=== PATIENT | female | born 1935 | race Caucasian/White ===

== ENCOUNTER → 2018-07-08 | Outpatient (CLI) | payer MEDICARE ==
[~2018-07-08] MED LIST: ALIGN PO; ALIGN PROBIOTIC PO; ANTACID ULTRA1000 M1 PO; ANUSOL HC-11% RC; ASACOL HD800 MG PO; ASPIRIN 81M81 MG/TA2 PO; AZO-STANDARD95 MG PO; B-12500 MCG PO; BALSALAZIDE DI750 MG PO; BENADRYL25 M2; BENADRYL25 M2 PO; BENTYL 10MG10 MG/CAP PO; CALTRATE-600 W600 MG PO; CANASA 1000MG1000 MG RC; CARDI-OMEGA1000 MG PO; CARDIZEM CD 24240 MG; COLACE 100100 MG/CAP; COLESTID 1GM1 G PO; CREON 120000 U-1 ECC; CREON 60000 U-11 ECC PO; CYMBALTA 30MG30 MG PO; D3PLUS1 CAP PO; EFFEXOR 75M75 MG/TAB PO; ELITE MAGNESIUM1 TAB; ESTRACE0.1 MG/GM VG; FERRATE325 MG; FISH OIL REGUL300 MG; FLAGYL500 MG PO; FLORAGEN PO; FLORAJEN A20 Billion PO; FOLIC ACID 11 MG/TA1; FOLIC ACID0.4 MG PO; HCTZ 25MG25 MG PO; HCTZ12.5TAB; HYDROCORTISON28.4 GM TP; IMODIUM 2MG CAPS2 MG; IMODIUM 2MG CAPS2 MG PO; IRON325 M1 PO; LEVAQUIN 5500 MG/TA1 PO; LISINOPRIL20 MG PO; LOTRONEX1 MG; MACROBID 1100 MG/CAP PO; MAGNESIUM250 M1 PO; METAMUCIL3.4 GM/DOS PO; METHIMAZOLE5 MG; METHIMAZOLE5 MG PO; MUCINEX 60600 MG/TA1 PO; NORCO 325 MG-51 TAB PO; POTASSIUM GLUC550 MG PO; PREVACID 30MG30 MG PO; PRILOSEC 20MG20 MG PO; PRILOSEC10 MG; PRINZIDE 12.5 M1 TAB PO; RESTASIS 60VL IU; RESTASIS0.05% OP; SYSTANE 0.4%-0.1 SOL OP; SYSTANE GEL EYE10 ML OP; SYSTANE IU; TESSALON P100 MG/CAP; TYLENOL 500MG500 MG PO; TYLENOL ARTHRI650 M1; VALIUM 5MG T5 MG/TAB PO; VANCOCIN H125 MG/CAP PO; VINPOCETINE PO; VITAMIN C500 MG PO; VITAMIN D31000 IU; ZESTRIL 10MG10 MG; ZOFRAN 4MG T4 MG/TAB PO; [UNRECOGNIZED DRUG - OTHER] PO
== END ==
LOC: COL.RAD 10:25
DX: I67.82 Cerebral ischemia (principal)

== ENCOUNTER 2019-04-24 04:24 | Emergency (ER) | payer MEDICARE ==
[~2019-04-24] VITALS: Ht 157.5 cm; Wt 45.5 kg
[2019-04-24 04:45] VITALS: BP 208/105; TEMP 97.4
[2019-04-24 05:04] LABS: COLLECTION METHOD CATHETER
[2019-04-24 05:12] LABS: PH 8 (5-8); SQUAMOUS EPITHELIAL None Seen /hpf; URINE APPEARANCE Hazy; URINE BACTERIA Rare /hpf; URINE BILIRUBIN Negative (NEGATIVE); URINE BLOOD 2+ (NEGATIVE); URINE COLOR Straw; URINE GLUCOSE Negative (NEGATIVE); URINE KETONE Negative (NEGATIVE); URINE LEUKOCYTE ESTERASE 2+ (NEGATIVE); URINE NITRATE Negative (NEGATIVE); URINE PROTEIN(semi-quant) Negative (NEGATIVE); URINE RBC >50 /hpf; URINE UROBILINOGEN Negative (NEGATIVE)
[2019-04-24] MEDS ORDERED: DIOVAN320 MG PO (05:27)
[2019-04-24] MEDS ORDERED: TYLENOL 500MG500 MG PO (05:31)
[2019-04-24 05:32] LABS: BASO # 0.1 (0.0-0.2); BASO % 0.9 % (0.0-2.0); EOS # 0.2 (0.0-0.7); EOS % 2.3 % (0-4.0); GRAN # 4.2 (1.4-6.5); GRAN % 60.7 % (42.2-75.2); HEMOGLOBIN 11.4 g/dl (12.5-16.0); LYMPH # 2.1 (1.2-3.4); LYMPH % 29.7 % (20.0-51.0); MEAN CELL VOLUME 107 fl (80.0-100.0); MEAN CORPUSCULAR HEMOGLOBIN 36 pg (27.0-31.0); MEAN CORPUSCULAR HGB CONC 34 g/dl (33.0-37.0); MEAN PLATELET VOLUME 8.5 fl (7.4-10.4); MONO # 0.4 (0.1-0.6); MONO % 6.1 % (1.7-9.3); PLATELET COUNT 280 K/mm3 (130-400); RED BLOOD COUNT 3.16 M/mm3 (4.10-5.30)
[2019-04-24 05:34] LABS: HEMATOCRIT 33.7 % (37.0-47.0)
[2019-04-24 05:44] LABS: ALBUMIN 3.9 gm/dL (3.5-5.0); BILIRUBIN,TOTAL 0.3 mg/dL (0.0-1.0); CALCIUM 9.7 mg/dL (8.4-10.2); CREATININE, serum 0.32 (0.52-1.25); POTASSIUM 4.2 mmol/L (3.4-5.0); TOTAL PROTEIN 6.9 gm/dL (6.4-8.2)
[2019-04-24] MEDS ORDERED: CEPHALEXIN500 M1 PO (07:35)
[2019-04-24 08:34] LABS: INR 0.9 (0.8-3.0); PROTHROMBIN TIME 9.9 SECONDS (9.7-12.8)
[2019-04-24 08:40] VITALS: PULSE 76
== END 2019-04-24 08:40 | disposition home or self-care (01) ==
LOC: COL.ER 04:24
PROVIDERS: Emergency Medicine
DX: N39.0 Urinary tract infection, site not specified (principal); R10.9 Unspecified abdominal pain; G89.29 Other chronic pain; I10 Essential (primary) hypertension; E78.5 Hyperlipidemia, unspecified; K86.1 Other chronic pancreatitis; K86.81 Exocrine pancreatic insufficiency; Z90.49 Acquired absence of other specified parts of digestive tract; Z90.710 Acquired absence of both cervix and uterus
CPT/HCPCS: A4216; J0696; J3010

== ENCOUNTER 2019-05-21 16:07 | Emergency (ER) | payer MEDICARE ==
[~2019-05-21] VITALS: Ht 157.5 cm; Wt 62.3 kg
[2019-05-21 16:23] VITALS: TEMP 98.1
[2019-05-21 16:50] LABS: COLLECTION METHOD CLEAN CATCH
[2019-05-21 16:57] LABS: PH 6 (5-8); SQUAMOUS EPITHELIAL 0-2 /hpf; URINE APPEARANCE Clear; URINE BACTERIA None Seen /hpf; URINE BILIRUBIN Negative (NEGATIVE); URINE BLOOD Negative (NEGATIVE); URINE COLOR Straw; URINE GLUCOSE Negative (NEGATIVE); URINE KETONE Negative (NEGATIVE); URINE LEUKOCYTE ESTERASE Negative (NEGATIVE); URINE NITRATE Negative (NEGATIVE); URINE PROTEIN(semi-quant) Negative (NEGATIVE); URINE RBC 0-2 /hpf; URINE UROBILINOGEN Negative (NEGATIVE)
[2019-05-21 17:13] LABS: HEMOGLOBIN 10.1 g/dl (12.5-16.0); MEAN CELL VOLUME 106 fl (80.0-100.0); MEAN CORPUSCULAR HEMOGLOBIN 35 pg (27.0-31.0); MEAN CORPUSCULAR HGB CONC 33 g/dl (33.0-37.0); MEAN PLATELET VOLUME 9.3 fl (7.4-10.4); PLATELET COUNT 292 K/mm3 (130-400); RED BLOOD COUNT 2.89 M/mm3 (4.10-5.30); REDCELL DISTRIBUTION WIDTH-CV 11.7 % (11.5-14.5)
[2019-05-21 17:28] LABS: ALANINE AMINOTRANSFERASE 18 U/L (9-52); ALBUMIN 3.8 gm/dL (3.5-5.0); ALKALINE PHOSPHATASE 51 U/L (50-136); ANION GAP 9 mmol/L (7-16); AST,SGOT 20 U/L (15-37); BILIRUBIN,TOTAL 0.5 mg/dL (0.0-1.0); BLOOD UREA NITROGEN 15 mg/dL (7-17); C-REACTIVE PROTEIN 0.8 mg/dL (0.0-0.9); CALCIUM 9.1 mg/dL (8.4-10.2); CARBON DIOXIDE 23 mmol/L (22-30); CHLORIDE 101 mmol/L (98-107); CREATININE, serum 0.68 (0.52-1.25); GLUCOSE 59 mg/dL (74-106); LIPASE 156 U/L (23-300); POTASSIUM 3.8 mmol/L (3.4-5.0); SODIUM 133 mmol/L (137-145); TOTAL PROTEIN 6.8 gm/dL (6.4-8.2)
[2019-05-21 17:36] LABS: TROPONIN-I < 0.012 ng/mL (0.000-0.035)
[2019-05-21 17:37] LABS: HEMATOCRIT 30.6 % (37.0-47.0)
[2019-05-21 17:47] LABS: EOSINOPHIL 1 % (0-4); LYMPHOCYTE 27 % (20.0-51.0); NEUTROPHILS 62 % (42.0-75.2); PLATELET ESTIMATE NORMAL (NORMAL)
[2019-05-21 17:48] LABS: ANISOCYTOSIS 1+; OVALOCYTES 1+
[2019-05-21 19:30] VITALS: BP 150/69; PULSE 88
== END 2019-05-21 19:30 | disposition home or self-care (01) ==
LOC: COL.ER 16:07
PROVIDERS: Emergency Medicine
DX: R19.7 Diarrhea, unspecified (principal); R10.32 Left lower quadrant pain; R10.12 Left upper quadrant pain; I10 Essential (primary) hypertension
CPT/HCPCS: J1200; J2405; J7030; Q9967

== ENCOUNTER → 2019-05-21 | Outpatient (CLI) | payer MEDICARE ==
[~2019-05-21] MED LIST changes: +CEPHALEXIN500 M1 PO; +DIOVAN320 MG PO
== END ==
LOC: COL.LAB 11:15
DX: A04.71 Enterocolitis due to Clostridium difficile, recurrent (principal); A09 Infectious gastroenteritis and colitis, unspecified

== ENCOUNTER 2020-02-05 04:03 | Emergency (ER) | payer MEDICARE ==
[~2020-02-05] VITALS: Ht 157.5 cm; Wt 47.3 kg
[2020-02-05 04:07] VITALS: TEMP 97.9
[2020-02-05 04:21] LABS: COLLECTION METHOD CLEAN CATCH
[2020-02-05 04:31] LABS: PH 7 (5-8); SQUAMOUS EPITHELIAL 0-2 /hpf; URINE APPEARANCE Cloudy; URINE BACTERIA None Seen /hpf; URINE BILIRUBIN Negative (NEGATIVE); URINE BLOOD 2+ (NEGATIVE); URINE COLOR Amber; URINE GLUCOSE Negative (NEGATIVE); URINE KETONE Negative (NEGATIVE); URINE LEUKOCYTE ESTERASE 3+ (NEGATIVE); URINE NITRATE Positive (NEGATIVE); URINE PROTEIN(semi-quant) 1+ (NEGATIVE); URINE RBC >50 /hpf
[2020-02-05 04:34] LABS: BASO # 0.1 (0.0-0.2); EOS # 0.3 (0.0-0.7); EOS % 4.6 % (0-4.0); GRAN # 3.5 (1.4-6.5); GRAN % 51.2 % (42.2-75.2); HEMATOCRIT 37.3 % (37.0-47.0); HEMOGLOBIN 12.4 g/dl (12.5-16.0); LYMPH # 2.5 (1.2-3.4); LYMPH % 35.7 % (20.0-51.0); MEAN CELL VOLUME 107 fl (80.0-100.0); MEAN CORPUSCULAR HEMOGLOBIN 35 pg (27.0-31.0); MEAN CORPUSCULAR HGB CONC 33 g/dl (33.0-37.0); MEAN PLATELET VOLUME 8.5 fl (7.4-10.4); MONO # 0.5 (0.1-0.6); MONO % 6.9 % (1.7-9.3); PLATELET COUNT 335 K/mm3 (130-400); REDCELL DISTRIBUTION WIDTH-CV 13.8 % (11.5-14.5)
[2020-02-05 04:41] LABS: ALBUMIN 4.7 gm/dL (3.5-5.0); BILIRUBIN,TOTAL 0.4 mg/dL (0.0-1.0); CALCIUM 10.5 mg/dL (8.4-10.2); CREATININE, serum 0.49 (0.52-1.25); TOTAL PROTEIN 8.1 gm/dL (6.4-8.2)
[2020-02-05] MEDS ORDERED: CEPHALEXIN500 M1 PO (05:40)
[2020-02-05 05:41] VITALS: BP 177/99; PULSE 88
== END 2020-02-05 05:54 | disposition home or self-care (01) ==
LOC: COL.ER 04:03
PROVIDERS: Emergency Medicine
DX: N39.0 Urinary tract infection, site not specified (principal); I10 Essential (primary) hypertension; B96.89 Other specified bacterial agents as the cause of diseases classified elsewhere; Z88.6 Allergy status to analgesic agent; Z90.710 Acquired absence of both cervix and uterus; Z90.49 Acquired absence of other specified parts of digestive tract; Z91.041 Radiographic dye allergy status
CPT/HCPCS: J0696

== ENCOUNTER 2021-04-19 05:58 | Emergency (ER) | payer MEDICARE ==
[~2021-04-19] VITALS: Ht 157.5 cm; Wt 45.5 kg
[2021-04-19 06:10] VITALS: TEMP 98.3
[2021-04-19] MEDS ORDERED: K-DUR20 MEQ PO (06:29)
[2021-04-19] MEDS ORDERED: NEURONTIN100 MG/CAP PO (06:29)
[2021-04-19 07:01] LABS: COLLECTION METHOD CLEAN CATCH
[2021-04-19 07:06] LABS: PH 5 (5-8); SQUAMOUS EPITHELIAL None Seen /hpf; URINE APPEARANCE Clear; URINE BACTERIA None Seen /hpf; URINE BILIRUBIN Negative (NEGATIVE); URINE BLOOD Negative (NEGATIVE); URINE COLOR Straw; URINE GLUCOSE Negative (NEGATIVE); URINE KETONE Negative (NEGATIVE); URINE LEUKOCYTE ESTERASE Negative (NEGATIVE); URINE NITRATE Negative (NEGATIVE); URINE PROTEIN(semi-quant) Negative (NEGATIVE); URINE UROBILINOGEN Negative (NEGATIVE)
[2021-04-19 07:38] LABS: BASO # 0.1 K/mm3 (0.0-0.2); BASO % 0.7 % (0.0-2.0); EOS # 0.1 K/mm3 (0.0-0.7); EOS % 1.5 % (0-4.0); GRAN # 6.2 K/mm3 (1.4-6.5); GRAN % 69.4 % (42.2-75.2); HEMOGLOBIN 10.9 g/dl (12.5-16.0); LYMPH # 1.9 K/mm3 (1.2-3.4); LYMPH % 21.5 % (20.0-51.0); MEAN CELL VOLUME 99 fl (80.0-100.0); MEAN CORPUSCULAR HEMOGLOBIN 33 pg (27.0-31.0); MEAN CORPUSCULAR HGB CONC 33 g/dl (33.0-37.0); MONO # 0.6 K/mm3 (0.1-0.6); MONO % 6.6 % (1.7-9.3); PLATELET COUNT 315 K/mm3 (130-400); RED BLOOD COUNT 3.34 M/mm3 (4.10-5.30); REDCELL DISTRIBUTION WIDTH-CV 13.4 % (11.5-14.5)
[2021-04-19 07:42] LABS: HEMATOCRIT 33.2 % (37.0-47.0)
[2021-04-19 10:01] LABS: ALBUMIN 3.5 gm/dL (3.5-5.0); BILIRUBIN,TOTAL 0.3 mg/dL (0.2-1.2); CALCIUM 9.5 mg/dL (8.4-10.2); CREATININE, serum 0.6 mg/dL (0.57-1.11); POTASSIUM 4.2 mmol/L (3.4-5.0); TOTAL PROTEIN 6.1 gm/dL (6.4-8.2)
[2021-04-19] MEDS ORDERED: AMOXICILLIN 8751 TAB PO (11:12)
[2021-04-19 11:30] VITALS: BP 130/75; PULSE 92
== END 2021-04-19 12:12 | disposition home or self-care (01) ==
LOC: COL.ER 05:58
PROVIDERS: Emergency Medicine Emergency Medical Services
DX: R10.30 Lower abdominal pain, unspecified (principal)
CPT/HCPCS: J3010

== ENCOUNTER → 2021-07-21 | Outpatient (CLI) | payer MEDICARE ==
[~2021-07-21] MED LIST changes: +AMOXICILLIN 8751 TAB PO; +K-DUR20 MEQ PO; +NEURONTIN100 MG/CAP PO
[2021-07-21 16:30] LABS: CLOSTRIDIUM DIFF A/B NEG; CLOSTRIDIUM DIFF A/B INTERP NonToxigenic C.diff
== END ==
LOC: EDSTATUS 10:57 → ZLAB.STJ 12:38
DX: A04.72 Enterocolitis due to Clostridium difficile, not specified as recurrent (principal)

== ENCOUNTER → 2021-08-09 | Outpatient (CLI) | payer MEDICARE ==
[2021-08-09 17:21] LABS: CALCIUM 9.8 mg/dL (8.4-10.2); CREATININE, serum 0.67 mg/dL (0.57-1.11)
== END ==
LOC: ZLAB.STJ 16:36
PROVIDERS: Family Medicine
DX: K86.81 Exocrine pancreatic insufficiency (principal)

== ENCOUNTER → 2021-10-07 | Outpatient (CLI) | payer MEDICARE ==
[2021-10-07 16:11] LABS: COLLECTION METHOD CLEAN CATCH
[2021-10-07 16:37] LABS: PH 9 (5-8); SQUAMOUS EPITHELIAL None Seen /hpf (0-10); URINE APPEARANCE Cloudy (CLEAR/HAZY); URINE BACTERIA Rare /hpf (NONE SEEN); URINE BILIRUBIN Negative (NEGATIVE); URINE BLOOD Negative (NEGATIVE); URINE COLOR Yellow (YELLOW); URINE GLUCOSE Negative (NEGATIVE); URINE KETONE Negative (NEGATIVE); URINE LEUKOCYTE ESTERASE 3+ (NEGATIVE); URINE NITRATE Negative (NEGATIVE); URINE PROTEIN(semi-quant) Negative (NEGATIVE); URINE UROBILINOGEN Negative (NEGATIVE)
== END ==
LOC: ZLAB.STJ 16:10
PROVIDERS: Family Medicine
DX: N39.0 Urinary tract infection, site not specified (principal)

== ENCOUNTER → 2021-10-26 | Outpatient (CLI) | payer MEDICARE ==
[2021-10-26 10:28] LABS: BASO # 0.1 K/mm3 (0.0-0.2); BASO % 1.3 % (0.0-2.0); EOS # 0.3 K/mm3 (0.0-0.7); EOS % 4.2 % (0.0-4.0); GRAN # 3.7 K/mm3 (1.4-6.5); GRAN % 58.3 % (42.2-75.2); HEMOGLOBIN 11.4 g/dl (12.5-16.0); LYMPH # 1.8 K/mm3 (1.2-3.4); LYMPH % 27.7 % (20.0-51.0); MEAN CELL VOLUME 91 fl (80.0-100.0); MEAN CORPUSCULAR HEMOGLOBIN 31 pg (27-31); MEAN CORPUSCULAR HGB CONC 34 g/dl (33.0-37.0); MONO # 0.5 K/mm3 (0.1-0.6); PLATELET COUNT 295 K/mm3 (130-400); RED BLOOD COUNT 3.67 M/mm3 (4.10-5.30); REDCELL DISTRIBUTION WIDTH-CV 13.4 % (11.5-14.5)
[2021-10-26 10:29] LABS: MAGNESIUM 1.8 mg/dL (1.6-2.6)
[2021-10-26 10:31] LABS: HEMATOCRIT 33.5 % (37.0-47.0)
[2021-10-26 17:08] LABS: CLOSTRIDIUM DIFF A/B POS; CLOSTRIDIUM DIFF A/B INTERP Toxigenic C.diff POS
== END ==
LOC: ZCOL.LAB 09:50
PROVIDERS: Family Medicine
DX: R19.7 Diarrhea, unspecified (principal)

== ENCOUNTER → 2022-01-11 | Outpatient (CLI) | payer MEDICARE | LOC: ZLAB.STJ 11:42 | DX: A04.71 Enterocolitis due to Clostridium difficile, recurrent (principal) ==

== ENCOUNTER 2022-08-04 09:57 | Day surgery (SDC) | payer MEDICARE, MEDICAID ==
[~2022-08-04] VITALS: Ht 157.5 cm; Wt 46.4 kg
[~2022-08-04 09:57] MED LIST changes: +ANTIVERT 12.512.5 MG PO; +ASPERCREME1 EACH TP; +B-121000 MCG PO; +CALCIUM 600 MG1 EAC2 PO; +CRANBERRY450 MG PO; +OMNICEF 300MG300 MG PO; +PEPCID 20MG TAB20 MG PO; +PRESERVISIONLUT; +PROBIOTIC BLEN1 EACH PO; +PROBIOTIC GOLD1 EACH PO; +REFRESH TEARS 330 ML OP; +TYLENOL 325MG325 MG PO; +VESICARE10 MG PO; +VITAMIN D31000 IU PO; +[UNRECOGNIZED DRUG - OTHER] PO
[2022-08-04 10:59] VITALS: BP 124/73; PULSE 91; TEMP 97.8
[2022-08-04] MEDS ORDERED: BIOFREEZE 0.2%-1 GE1 TOP (11:12)
[2022-08-04] MEDS ORDERED: MELATIN 3 MG-11 TAB PO (11:16)
[2022-08-04] MEDS ORDERED: TESSALON P100 MG/CAP PO (11:17)
[2022-08-04] MEDS ORDERED: MIRALAX PA17 GM/Dose PO (11:18)
[2022-08-04 12:25] VITALS: BP 119/64; PULSE 86; TEMP 97.4
[2022-08-04 12:40] VITALS: BP 118/64; PULSE 64
[2022-08-04 12:55] VITALS: BP 146/85; PULSE 79
[2022-08-04 13:10] VITALS: BP 132/75; PULSE 85
[2022-08-04 13:20] VITALS: BP 133/78; PULSE 81
--- NOTE | 2022-08-04 16:27 | NUR ---
1225 PT TO [facility] FROM ENDO S/P COLONOSCOPY, L&OX4, SMILING FREQUENTLY, NAD, ASSITED TO CHAIR WITH 2 PERSON ASSIST - SLOW AND STEADY GAIT. PLACED ON MONITOR, VSS ON RA. RECEIVED REPORT AND ASSUMED CARE FROM DARRELL RN. FAMILY BROUGHT INTO ROOM. 1230 PROVIDED COFFEE, WATER, MUFFIN PER REQUEST, TOLERATES WELL. DENIES COMPLAINT OR NEED. ORIENTED TO ROOM AND DC PLAN. CALL LIGHT IN REACH. 1245 A&O, NAD, VSS ON RA, REMAINS STABLE AND WITHOUT COMPLAINT, STILL SMILING FREQUENTLY. T/C TO [facility] WITH UPDATE AND TO REQUEST TRANSPORT BACK. HAS BEEN IN TO SPEAK WITH PT/FAMILY - ALL QUESTIONS ADDRESSED TO PT AND FAMILY SATISFACTION. 1305 PT REMAINS A&O, NAD, VSS ON RA, WITHOUT COMPLAINT. IV D/C'D. D/C INSTRUCTIONS REVIEWED WITH AND HANDED TO PT. 1315 ASSISTED WITH GETTING READY TO LEAVE, PAPERWORK PLACED IN PT'S PERSONAL BAG - PT AWARE. 1330 PT TAKEN TO ENTRANCE AND HANDED OFF TO [employer] INTER[employer]ATIONAL EXCHANGE COORDINATOR WITH ALL BELONGINGS AND PAPERWORK. REMAINS STABLE NOTED ABOVE AND WITHOUT COMPLAINT.
== END 2022-08-04 13:30 | disposition home or self-care (01) ==
LOC: SDCO 09:57
DX: K57.30 Diverticulosis of large intestine without perforation or abscess without bleeding (principal); K52.9 Noninfective gastroenteritis and colitis, unspecified
CPT/HCPCS: J2704; J7120

== ENCOUNTER → 2023-06-09 | Outpatient (CLI) | payer MEDICARE, MEDICAID ==
[~2023-06-09] MED LIST changes: +BIOFREEZE 0.2%-1 GE1 TOP; +MELATIN 3 MG-11 TAB PO; +MIRALAX PA17 GM/Dose PO; +TESSALON P100 MG/CAP PO
[2023-06-09 09:20] LABS: COLLECTION METHOD CLEAN CATCH
[2023-06-09 09:38] LABS: PH 5.5 (5.0-8.5); URINE APPEARANCE Cloudy (CLEAR/HAZY); URINE COLOR Yellow (YELLOW); URINE GLUCOSE Negative (NEGATIVE); URINE KETONE Negative (NEGATIVE); URINE NITRATE Positive (NEGATIVE); URINE PROTEIN(semi-quant) Negative (NEGATIVE); URINE UROBILINOGEN 0.2 E.U/dL (0.2-1.0)
[2023-06-09 09:39] LABS: SQUAMOUS EPITHELIAL 0-2 /hpf (0-10); URINE BACTERIA Many /hpf (NONE SEEN); URINE BLOOD 1+ (NEGATIVE); URINE CALCIUM OXALATE CRYSTAL Present (NOT PRESENT)
== END ==
LOC: ZLAB.STJ 09:03
PROVIDERS: Family Medicine
DX: N39.0 Urinary tract infection, site not specified (principal)